=== PATIENT | male | born 1960 | race Caucasian/White ===

== ENCOUNTER → 2024-01-04 06:20 | Day surgery (SDC) | payer MEDICARE, BC, SELFPAY ==
[2024-01-04 10:10] LABS: Glucose - Point of Care 114 mg/dl (70-99)
== END ==
LOC: GI 06:20
PROVIDERS: ATTENDING PHYSICIAN Internal Medicine Gastroenterology
DX: Z12.11 Encounter for screening for malignant neoplasm of colon (principal); R19.5 Other fecal abnormalities; K64.8 Other hemorrhoids; K57.30 Diverticulosis of large intestine without perforation or abscess without bleeding; D12.0 Benign neoplasm of cecum; D12.2 Benign neoplasm of ascending colon
CPT/HCPCS: 45385; 88305; 82962

== ENCOUNTER 2024-02-05 06:09 | Day surgery (SDC) | payer MEDICARE, BC, SELFPAY ==
[2024-01-18 14:12] VITALS: BMI 27.6
[2024-01-18 14:58] LABS: Hematocrit 44.3 % (39.0-52.0); Mean Corp Hgb Conc. 36.1 g/dL (33.0-37.0); Mean Corpuscular Hgb 31.7 pg (27.0-31.0); Mean Corpuscular Volume 87.9 fL (80.0-94.0); Mean Platelet Volume 11.3 fL (7.4-10.4); Platelet Count 166 10^3/uL (130-400); Red Blood Cell Count 5.04 10^6/uL (4.70-6.10); Red Cell Dist. Width 12.2 % (11.5-14.5); White Blood Cell Count 8.7 10^3/uL (4.8-10.8)
[2024-01-18 15:17] LABS: ALT (SGPT) 33 U/L (0-50); AST (SGOT) 30 U/L (17-59); Alkaline Phosphatase 51 U/L (38-126); Blood Urea Nitrogen 13 mg/dl (9-20); Calcium 9.6 mg/dl (8.4-10.2); Carbon Dioxide 24 mmol/L (22-30); Chloride 102 mmol/L (98-107); Estimated Creatinine Clearance 91 ml/min; Glucose 97 mg/dl (70-99); Potassium 4.1 mmol/L (3.5-5.1); Sodium 141 mmol/L (135-145); Total Bilirubin 1.1 mg/dl (0.2-1.3); Total Protein 7.6 g/dl (6.3-8.2); eGFR > 60.00
[2024-01-19 09:13] LABS: Glycohemoglobin (HgbA1c) 6.2 % (4.0-5.6)
--- NOTE | 2024-01-24 14:24 | VNURNOTE ---
[facility] liaison called patient to explain [facility] joint protocol, [facility] services. No answer, left message.
--- NOTE | 2024-01-26 11:30 | VNURNOTE ---
Patient is scheduled for an elective R THR on 02/05/24- he is a same day patient with Dr Martinez. Spoke with patient prior to surgery. Introduced role of [facility] Liaison. Patient reports that he lives with his in a MULTI story home.
There are 4 steps to enter and a flight of steps to the second floor.
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 He currently functions independently. He has a raised toilet seat, cane and rolling walker.
He had [facility] services after his prior THR but was not same day surgery.
PCP is Dr Garza.
Discussed [facility] joint protocol and post surgical plans.
Reviewed that he will have [facility] services initially and will then start outpatient PT.
Patient selects [facility] for his home care needs and will go to 'the outpt PT center at [place]' for outpatient PT. Scheduled for 02/07.
Patient is in agreement with plan and states that his will be home with him. Advised to bring RW with him day of surgery.
Plan: [facility] per [facility] joint protocol then outpt PT on 02/07
[2024-02-05] VITALS (13 sets, daily range): BP systolic 113–164; BP diastolic 78–107; BMI 27.6
[2024-02-05 06:34] LABS: Glucose - Point of Care 135 mg/dl (70-99)
[2024-02-05] MEDS: TYLENOL 650 MG PO (06:42)
[2024-02-05] MEDS: CELEBREX 200 MG PO (06:42)
[2024-02-05 09:04] LABS: Glucose - Point of Care 150 mg/dl (70-99)
[2024-02-05] MEDS: ROXICODONE 5 MG PO (10:25)
[2024-02-05] MEDS: NORMOSOL-R/PLASMALYTE-A 1000 IV (10:25)
[2024-02-05] MEDS: CYKLOKAPRON 650 MG PO (10:26)
[2024-02-05] MEDS: ANCEF 5 IV (10:54)
== END 2024-02-05 12:11 | disposition home or self-care (01) ==
LOC: SDS 06:09
PROVIDERS: ATTENDING PHYSICIAN Specialist; FAMILY PHYSICIAN Family Medicine
DX: M16.11 Unilateral primary osteoarthritis, right hip (principal); G45.9 Transient cerebral ischemic attack, unspecified; I10 Essential (primary) hypertension
CPT/HCPCS: 27130; 36415; 73502; 80053; 82962; 83036; 85027; 87070; 93005; 97162; C1713; C1776